=== PATIENT | female | born 1980 | race Caucasian/White ===

== ENCOUNTER 2024-12-15 07:54 | Day surgery (SDC) | payer OTHER ==
[2024-12-13 08:53] LABS: Absolute Eosinophils 0.1 K/uL (0-0.5); Absolute Lymphocytes (CBC) 2.7 K/uL (0.7-4.9); Absolute Monocytes 0.4 K/uL (0.1-1.3); Absolute Neutrophil 4.7 K/uL (1.8-8.0); Basophils % 0.5 % (0-1.3); Eosinophils % 1.5 % (0-4.4); Hematocrit 42.7 % (36.0-45.0); Hemoglobin 14.8 g/dL (12.0-15.0); Lymphocytes % 33.5 % (15.3-44.8); MCHC 34.5 g/dL (32.0-36.0); MCV 95.4 fL (80-100); MPV 7.7 fL (7.6-11.3); Monocytes % 5.3 % (3.3-12.3); Neutrophils % 59.2 % (41.7-73.7); Platelets 332 thou/uL (152-406); RBC Red Blood Cell Count 4.48 M/uL (3.86-4.86); Red Cell Distribution Width 12.2 % (12.1-15.2)
[2024-12-13 09:05] LABS: PT Prothrombin Time 11.3 SECONDS (10-13.0); PTT, Activated Partial Thromb 29.9 SECONDS (27.2-37.4); Protime INR 0.99
[2024-12-13 09:07] LABS: Anion Gap 8.2 mEq/L (5.0-15.0); Potassium 4.2 mEq/L (3.5-5.1)
[2024-12-13 09:14] LABS: Urine Bilirubin NEGATIVE (Negative); Urine Blood Negative (Negative); Urine Clarity Clear (Clear); Urine Color Colorless (Yellow); Urine Glucose NEGATIVE (Negative); Urine Ketones NEGATIVE (Negative); Urine Microscopic Reflex YN NO UMIC; Urine Nitrite NEGATIVE (Negative); Urine Protein NEGATIVE (Negative); Urine Urobilinogen Normal (Normal)
--- NOTE | 2024-12-14 12:32 | EKG ---
Test Date: 2024-12-13 Test Time: 08:27:29 [place]: [place] MEASUREMENT RESULTS: Intervals: Rate: 70 NV: 128 QRSD: 82 QT: 408 QTc: 440 [place]: P: 29 NV: 128 QRS: 44 T: 33 INTERPRETIVE STATEMENTS: Normal sinus rhythm Normal ECG No previous ECG available for comparison Electronically Signed On 12-14-24 12:26:19 CDT by Tera Pringle
[2024-12-15] MEDS: HEPARIN 5000 UNIT/ML 1 ML VIAL ONE (08:27)
[2024-12-15] MEDS: Ringers Lactate 1,000 ML IV ONE ×2 (08:30→14:59)
[2024-12-15] MEDS ORDERED: FENTANYL CITR 100 MCG/2 ML ONE ×2 (10:05→11:26)
[2024-12-15] MEDS ORDERED: GLYCOPYRROLATE 0.2 MG/ML SYR ONE (10:05)
[2024-12-15] MEDS ORDERED: ONDANSETRON 4 MG/2 ML VIAL ONE (10:05)
[2024-12-15] MEDS ORDERED: propofoL 200 MG/20 ML VIAL IV ONE (10:05)
[2024-12-15] MEDS ORDERED: NEOSTIGMINE 1 MG/ML -10 ML VIAL ONE (10:05)
[2024-12-15] MEDS ORDERED: MIDAZOLAM HCL 2 MG/2 ML INJ ONE (10:06)
[2024-12-15] MEDS ORDERED: LIDOCAINE 2% MPF 5 ML VIAL ONE (10:07)
[2024-12-15] MEDS ORDERED: ROCURONIUM 50 MG/5 ML VIAL IV ONE (10:07)
[2024-12-15] MEDS ORDERED: NS 0.9% VIAL 10 ML ONE (10:09)
[2024-12-15] MEDS ORDERED: CEFAZOLIN SODIUM 1 GM/VIAL ONE (10:09)
[2024-12-15] MEDS ORDERED: NA CHLORIDE 0.9% 100 ML ONE (10:10)
[2024-12-15] MEDS ORDERED: LIDOCAINE HCL/EPINEPHRINE 20 ML MDV ONE (10:10)
[2024-12-15] MEDS ORDERED: dexAMETHasone 10 MG/ML VIAL ONE (10:13)
[2024-12-15] MEDS: CEFAZOLIN SODIUM 2 GM/VIAL ONE (11:05)
[2024-12-15] MEDS: VASOPRESSIN 20 UNIT/ML VIAL ONE (11:50)
[2024-12-15] MEDS ORDERED: HYOSCYAMINE SULF 0.125 MG TAB PO PRN (14:06)
[2024-12-15] MEDS ORDERED: TRAZODONE 50 MG TABLET PO PRN (14:06)
[2024-12-15] MEDS ORDERED: **PT MED**Rimegepant Sulfate [Nurtec Odt] 75 MG Tab.Rapdis) PO PRN (14:06)
[2024-12-15] MEDS ORDERED: PROMETHAZINE INJ 25 MG/ML AMP IV PRN (14:07)
--- NOTE | 2024-12-15 14:13 | P.BOP ---
Preoperative diagnosis: rectocele,enterocele,defecatory dysfunctionSUI,labial hypertrophy Postoperative diagnosis: [id number], enterocele,perineal body defet PARAMJIT, labial hypertrophy Primary procedure: postrepair w/ biolggraft, enterocel repair with ludwig SSLF colpopexy, TVT-O Secondary procedure: perineorrhaphy, bilateral reduction labioplasty, cystoscopy Chief Technologist: Mercedes Holder Estimated blood loss: 100 Specimen: none Findings: post waldefect SSRrt lower lateral adn PB, large enterocele,cysto neg Anesthesia: General Complications: None Drain(s): Urinary catheter Implants: axis dermis graft, TVT-O Fluids & blood products: 900, UO 100 Transferred to: Recovery Room Condition: Good
[2024-12-15] MEDS ORDERED: HYDROMORPHONE HCL 0.5 MG/0.5 ML INJ ONE (14:56)
[2024-12-15] MEDS: SCOPOLAMINE HYDROBROMIDE PATCH TD ONE (14:57)
[2024-12-15 15:20] VITALS: O2SAT 96
[2024-12-15 15:45] VITALS: BMI 32.4
[2024-12-15] MEDS: ONDANSETRON 4 MG/2 ML VIAL IV PRN (15:59)
[2024-12-15] MEDS: MORPHINE 2 MG/ML SYR IV PRN (15:59)
[2024-12-15] MEDS: HEPARIN 5000 UNIT/ML 1 ML VIAL SQ SCH (18:07)
[2024-12-15] MEDS: Ringers Lactate 1,000 ML IV SCH (23:51)
--- NOTE | 2024-12-16 00:22 | OP ---
Date of Procedure: 12/15/2024 Surgeon: Brianne Henriquez MD Business Analyst Consultant: Mercedes Cervantes Preoperative Diagnoses: Rectocele; enterocele; defecatory dysfunction with outlet obstruction; stres s urinary incontinence; and bilateral labial hypertrophy, right greater than left. Postoperative Diagnoses: Stage II posterior wall defect; posterior and apical enterocele; perineal b rosendo significant defect; stress urinary incontinence; and bilateral labial hypertrophy, right greater than left. Procedures Performed: 1. Posterior repair with biologic graft augmentation using the [place] Dermis graft. 2. Posterior enterocele and wall fixation with bilateral sacrospinous ligament fixation/colpopexy. 3. Perineorrhaphy. 4. Transobturator mid urethral sling and cystoscopy. 5. Bilateral reduction labiaplasty. Anesthesia: General endotracheal. Estimated Blood Loss: 100. Urine Output: 100. Fluids: 900. Specimens: No specimens. Complications: No complications Drains: Fam catheter and vaginal packing. Implants: [place] Dermis 8 x 6 graft and a TVT-O. Findings: Posterior vaginal wall defect that was large. Right lateral site-specific defect was note d, which was repaired in a site-specific fashion. Then, the enterocele that was mostly in the proxim al one-third of the posterior wall, also coming from the vault, although the anterior portion of the wall seemed suspended. Due to the apical enterocele that was present, it was difficult to repair it without using a graft and the colpopexy had to be performed in a graft augmented fashion continuing o n to repair the enterocele and the posterior wall and then to prevent the recurrence of th e enterocele. The distal uterosacral ligament remnants were used for attaching the graft to the prox imal portion of the repair. Then, Y was placed all the way from the apex down to the andrea chet body maintaining the vaginal length that was there at the beginning of the operation, which was approximately 7 cm. The vaginal length was very well maintained after repair. The vagina l introitus was brought down from 4 cm to 3. Labiaplasty was performed first on the right side and t here was a significant hypertrophy on the left as well, so bilateral reduction labiaplasty was perfor med with flaps that were advanced and closure of the labia minora was done with careful wa s performed to preserve the innervation of the labia minora based on the anatomical . On cystoscopy, and had strong jets of urine from them. There was no evidence of any mesh in the bladder, and the urethra was normal on cystoscopic examination. Indications: The patient is a 44-year-old female presenting defect symptoms, bowel sympto ms as well as defecatory dysfunction, stress urinary incontinence, which was evaluated and was confir med to have PARAMJIT and urethral hypermobility. The labial hypertrophy was causing her significant disco mfort more on the right side than on the left during various activities of daily living. After evaluating the patient completely and getting the patient started on vaginal estrogen and bowel regimen to prevent further constipation and straining during the postoperative time, she was then gi jeremy the options of observation, pelvic floor rehab with or without pessary, and then the option of clements rgery. The patient wanted to proceed with surgical repair of the posterior defect as well as the str ess incontinence and wanted to proceed with labial reduction as well for medical indications. bleeding; infection; injury to the bowel, bladder, and ureters. catheter ablat ion, sling revision, mesh exposure were all explained and the patient consented. She has Factor V Leiden mutation and therefore preoperative heparin 5000 units was ordered. Then, clements bcu Lovenox was ordered for 2 weeks to be taken daily at home. Then, the patient was scheduled and b rought to the OR. In preoperative area, she and her had the opportunity to ask all their que stions and after these were answered to their satisfaction, she was taken back to the OR. 2 g of Anc ef was given. She tolerated this without a problem. She was placed in supine fashion on the operati ng table. General anesthesia was given. She was placed in the dorsal lithotomy position using Kamaljit stirrups. The lower abdomen, medial thighs, vulva, vagina, and perineum were prepped and draped in a sterile fashion. SCDs were started. The positioning of the arms was checked. The patient was isabella blaine in slight Trendelenburg position and then a time-out was done. Once this was done, the procedure was started. POP-Q was done assessing the entire pelvic floor support system. Anterior wall had no defects; however, the posterior wall defects as discussed above were discovered and plan was to perf orm sacrospinous fixation with graft augmented repair for the enterocele in the proximal portions and at the vault. Posterior defect repair with biologic graft: A 3 cm very narrow mirna-shaped incision was made in the posterior wall less than 1 cm wide at its widest base, which was in the vestibule. Then, another inverted triangle was placed down onto the perineum. Although the perineal skin was intact, there w as significant defect in the perineal body, so the exposure of the perineum was essential to __ repair. Dilute vasopressin was injected 20 mL in the posterior compartment along the lines of the incision. Then, incisions were made with a 15 blade. The perineal epithelium and the vaginal epith elium were denuded. Connective tissue was exposed. Rectovaginal exam was performed for me to assess the defects properly, and it was clear that there was a right lateral wall defect with avulsion of t he rectovaginal septum from the side. The perineal body was also weak and reattachment was important for me to reconstruct the entire posterior wall. Dissection was carried in the posterior compartment all the way up to the apex. The enterocele was c arefully dissected away from the vaginal epithelium and subepithelium. The connective tissue defect on the right lateral aspect and the sulcus, connective tissue lateral to it were all exposed. The perineum was also dissected to expose the perineal body structures using sharp dissection with kn elena and scissors as needed. The posterior wall defect in the right lateral aspect was sutured with a continuous running 2-0 PDS a nd the distal portion of this was later connected to the perineal body once it was reconstructed onto the graft. Bilateral sacrospinous ligament fixation/colpopexy: From the proximal portion of the posterior wall laterally, dissection was performed towards the ipsilateral ischial spine. Then sweeping medial and posterior to the ischial spine towards the coccyx, the sacrospinous ligament was cleaned up. The bow el was cleaned off the sacrospinous ligament. This dissection was performed on both sides. The Capi o device was used to place Prolene suture on the mid ligament on the anterior face of the ligament wi thout encircling it carefully and these were held on clamps. A self-retaining [place] retractor wa s used for the case, and a Fam was placed at the beginning of the case after draining the bladder a nd clamping it and retracting it superiorly. The proximal portion of the apex was then dissected all the way, both in the center and laterally. D istal uterosacral ligament tissue was grasped with the help of 2 Allis clamps. Then 2-0 PDS sutures were placed, one in the center and one on either sides on the distal uterosacral and then the graft w as fashioned into the Y of 8 x 6 x 3, soaked according to package instructions and brought in. The graft was then placed to anchor the central portion using the PDS sutures to the apex and the mcgrath lauren, the distal uterosacral ligaments, then the lateral sacrospinous sutures were attached to the lat eral portions of the 8 cm graft and then all these sutures were tied down carefully and the sacrospin ous sutures were tied on the ligament. The rest of the graft was then attached laterally in the distal half of the posterior rectovaginal se ptum to this tissue using 2-0 Vicryl in an interrupted fashion and a continuous running 2-0 PDS. The distal portion was attached to the distal portion of the posterior rectovaginal septum. Perineal body reconstruction: Perineal body structures help of continuous running 2-0 PDS in the deepest margin and 2-0 Vicryl in an interrupted fashion with 3 sutures, and then a continuous running 2-0 Vicryl on a third layer to bring the complete perineal body together. Once all the attachments were made, the vaginal epithelium was not further trimmed and allowed to be left as it was slightly loose and this was closed with a continuous running 2-0 Vicryl in a horizonta l mattress fashion and perineum closed with 3-0 Vicryl. Rectal exam was done and was negative. Mid urethral sling: The mid urethra was picked up with 2 Allis clamps, injected with dilute vasopres sin 10 mL. Dissection performed to the ipsilateral obturator space after to accommodate t he sling. The wing guide was placed, plastic sheath and dilator were passed hugging the inferior pub ic ramus exiting 2 cm lateral to the groin fold above the level of the urethral meatus. The plastic dilators were held with Ann Marie clamps, and the mesh and sheaths were held with a clamp and a plastic d ilator cut on both sides. Once this was performed, the mid urethral area was well visualized and ten sioned with a Metzenbaum scissors between the urethra and the mesh. Once the tension was appropriate , the mesh was left in place, pulling the sheaths out and the mesh cut flush with the skin at the bert in incisions. Incision was closed with Dermabond. After irrigation with antibiotic solution, the epithelium was closed with a continuous running 3-0 Vi cryl suture. Cystoscopy: Fam was removed and cystoscopy was performed with a 30-degree lens, normal saline, 17- Turkish sheath. Excellent jets of urine from both ureteric orifices were noted, and no evidence of an y mesh in the bladder. The bladder was then drained. Fam was replaced and vaginal packing was isabella blaine. Bilateral reduction labiaplasty. Once dilute vasopressin was injected in the labia, the labia was ma rked accordingly. There was at least 4 cm of the labia on the right side and 2.5 on the left side. The labia minora were significantly elongated. Once the marking was made with a marking pen, an inci becca made with a 15 blade. Dissection was performed removing the epithelium alone. Then, the subcut aneous tissues and the connective tissue were all sutured with a continuous running 3-0 Vicryl imbric ating on both sides, and then interrupted 4-0 Vicryl for epithelial closure on both sides. Excellent hemostasis. Antibiotic ointment applied and gauze placed with mesh panties. The patient was recove red from anesthesia and taken to PACU in a stable condition. EBL was 100. No complications. Vanessa bai was de-briefed about her procedure. She will have a voiding trial in the morning and be discharged. SK/MODL Voice ID: [id number] Report ID: [id number]
[2024-12-16] MEDS: ACETAMINOPHEN 500 MG TAB PO PRN (04:11)
[2024-12-16] MEDS: PANTOPRAZOLE 40MG TABLET PO SCH (06:17)
[2024-12-16] MEDS: **PT MED**Mirabegron [Myrbetriq] 50 MG Tab.Er.24h PO SCH (09:00)
[2024-12-16 12:27] VITALS: BP 132/69; TEMP 98.2
== END 2024-12-16 13:00 | disposition home or self-care (01) ==
LOC: OR 07:54 → 2ND 14:16 → OR 12-16 13:00
PROVIDERS: ATTEND Obstetrics & Gynecology
PROC: 0JQC0ZZ Repair Pelvic Region Subcutaneous Tissue and Fascia, Open Approach (ICD-10-PCS; 2024-12-15)
PROC: 0USG0ZZ Reposition Vagina, Open Approach (ICD-10-PCS; 2024-12-15)
PROC: 0TSD0ZZ Reposition Urethra, Open Approach (ICD-10-PCS; 2024-12-15)
PROC: 0UQMXZZ Repair Vulva, External Approach (ICD-10-PCS; 2024-12-15)
PROC: 0JUC0JZ Supplement of Pelvic Region Subcutaneous Tissue and Fascia with Synthetic Substitute, Open Approach (ICD-10-PCS; principal; 2024-12-15 09:30)
DX: N81.10 Cystocele, unspecified (principal); N39.3 Stress incontinence (female) (male); N90.60 Unspecified hypertrophy of vulva; N90.89 Other specified noninflammatory disorders of vulva and perineum
CPT/HCPCS: 93005; 85025; 80048; 36415; 86900; 86850; 85610; 86901; 85730; 81003; 94010; 57250; 57267; 57282; 57288; 56620; J2550; J1644 ×4; A4216; J2704; J2003; J2250; J3010 ×2; J1100; J2270 ×2; J1171; J2405 ×2; J7120 ×4; J0690; A4314; J2710